=== PATIENT | male | born 1990 | race Caucasian/White ===

== ENCOUNTER 2020-11-14 09:24 | Outpatient (CLI) | payer OTHER, SELFPAY ==
--- NOTE | ~2020-11-14 | XR_ITS ---
EXAMINATION: XR chest 2V DATE: 11/14/2020 09:50 INDICATION: Smoking. Preop. TECHNIQUE: Frontal and lateral views of the chest were obtained. COMPARISON: Chest 2 views 02/17/2017, chest CT 02/17/2017 FINDINGS: The chest demonstrates clear lungs without pneumonia, pleural effusion, or pneumothorax. Th e heart size is normal. Surgical clips in the right upper quadrant are likely from cholecystectomy. IMPRESSION: 1. No acute cardiopulmonary disease. Reviewed, dictated and finalized at location A.
--- NOTE | 2020-11-14 09:54 | ECG_ITS ---
Measurements Intervals [place] Rate: 61 P: 50 ID: [id number] QRS: 50 QRSD: 102 T: 19 QT: 381 QTc: 385 Interpretive Statements SINUS RHYTHM WITH SINUS ARRHYTHMIA BASELINE WANDER- V4 NORMAL ECG Electronically Signed On 11-14-2020 10:24:04 CDT by Van Toro D.O.
== END 2020-11-14 09:25 | disposition home or self-care (01) ==
LOC: ANHIMG 09:34
PROVIDERS: PCP Family Medicine; Visit Provider Nurse Practitioner Family
DX: Z01.818 Encounter for other preprocedural examination (principal); F17.200 Nicotine dependence, unspecified, uncomplicated; I49.9 Cardiac arrhythmia, unspecified
CPT/HCPCS: 71046; 93005

== ENCOUNTER 2020-12-19 16:57 | Outpatient (CLI) | payer OTHER, SELFPAY ==
--- NOTE | ~2020-12-19 | US_ITS ---
EXAMINATION: US venous doppler [facility] EXAM DATE: 12/19/2020 17:25 INDICATION: Bilateral calf pain. TECHNIQUE: Multiple grayscale, color flow and Doppler images of the lower extremity deep venous syste ms bilaterally were obtained and reviewed. There is no prior study for comparison. FINDINGS: Right side: The right common femoral, femoral and profunda veins demonstrate normal color flow, respi ratory variation, augmentation and compressibility. Compressibility, color flow confirmed within the right popliteal, posterior tibial, peroneal, and greater saphenous veins. Left side: The left common femoral, femoral and profunda veins demonstrate normal color flow, respira tory variation, augmentation and compressibility. Compressibility, color flow confirmed within the l eft popliteal, posterior tibial, peroneal, and greater saphenous veins. IMPRESSION: 1. No lower extremity deep venous thrombosis bilaterally. Reviewed, dictated and finalized at location A.
[2020-12-19 18:00] LABS: D Dimer 0.42 ug/mL (<0.48)
[2020-12-19 18:02] LABS: Anion Gap 8 mmol/L (8-16); Blood Urea Nitrogen 22 mg/dL (9-20); Calcium 9.8 mg/dL (8.4-10.2); Carbon Dioxide 28 mmol/L (22-30); Chloride 103 mmol/L (98-107); Estimated Glomerular Filt Rate 59; Glucose 82 mg/dL (75-110); Magnesium 2.1 mg/dL (1.6-2.3); Sodium 139 mmol/L (137-145)
[2020-12-19 18:08] LABS: Basophils Percent Auto 0.5 % (0.2-1.2); Eosinophils Absolute Auto 0.1 K/mm3 (0-0.3); Eosinophils Percent Auto 1.6 % (0-4.4); Hematocrit 44.5 % (42.0-52.0); Hemoglobin 15.1 g/dL (14.0-18.0); Immature Granulocyte Absolute 0.02 K/mm3 (0.00-0.031); Immature Granulocyte Percent A 0.2 % (0-0.5); Lymphocytes Absolute Auto 2.66 K/mm3 (0.9-3.2); Lymphocytes Percent Auto 30.8 % (18.3-44.2); Mean Corpuscular HGB Conc 33.9 g/dl (32-36); Mean Corpuscular Hemoglobin 28.7 pg (26-34); Mean Corpuscular Volume 84.6 fl (80-100); Mean Platelet Volume 10.4 fl (7.4-10.4); Monocytes Absolute Auto 0.5 K/mm3 (0.1-0.6); Neutrophils Absolute Auto 5.3 K/mm3 (1.3-6.7); Neutrophils Percent Auto 60.9 % (45.5-73.1); Platelet Count Result 262 k/mm3 (150-375); Red Blood Count 5.26 M/mm3 (4.6-6.20); Red Cell Distribution Width 12.2 % (11.5-14.5); White Blood Count 8.7 K/mm3 (4.5-10.0)
== END 2020-12-19 16:58 | disposition home or self-care (01) ==
PROVIDERS: PCP Family Medicine; Visit Provider Nurse Practitioner Family
DX: M79.661 Pain in right lower leg (principal); Z82.49 Family history of ischemic heart disease and other diseases of the circulatory system; M79.662 Pain in left lower leg; M47.816 Spondylosis without myelopathy or radiculopathy, lumbar region
CPT/HCPCS: 36415; 80048; 82607; 83735; 85025; 85380; 93970

== ENCOUNTER → 2021-08-27 01:50 | Outpatient (CLI) | payer OTHER, SELFPAY ==
[2021-08-27 19:53] LABS: SARS-CoV-2 RNA PCR Negative
== END ==
PROVIDERS: PCP Family Medicine; Visit Provider Internal Medicine Gastroenterology
DX: Z01.812 Encounter for preprocedural laboratory examination (principal); Z20.822 Contact with and (suspected) exposure to COVID-19
CPT/HCPCS: C9803; U0003; U0005

== ENCOUNTER 2021-08-30 02:10 | Day surgery (SDC) | payer OTHER, SELFPAY ==
[2021-08-16 10:11] VITALS: BMI 34.9
--- NOTE | 2021-08-29 13:45 | WPDANESEPPF ---
Anes - Initial Pre Proc Eval Procedure: Operation Date: 08/30/21 09:00 Proposed Procedures p Colonoscopy - Andrew Friedman MD <Deyvi Brennan DO - Last Filed: 08/30/21 09:38> Date/Time: 08/29/21 13:45 <Deyvi Brennan DO - Last Filed: 08/30/21 09:38> Surgeon: Andrew Friedman MD <Deyvi Brennan, DO - Last Filed: 08/30/21 09:38> Pre Op Diagnosis: diarrhea, melena <Deyvi Brennan DO - Last Filed: 08/30/21 09:38> Patient Data Age: 31 Gender: M Height: 1.85 m Weight: 120 kg <Deyvi Brennan DO - Last Filed: 08/30/21 09:38> Allergies Allergy/AdvReac Type Severity Reaction Status Date / Time Penicillins Allergy Unknown Unknown Verified 08/30/21 08:11 <Deyvi Brennan DO - Last Filed: 08/30/21 09:38> Home Medications Medication Instructions Recorded Confirmed Type ibuprofen 800 mg tablet 800 mg PO Q6H PRN #60 tablet 03/22/21 08/30/21 Rx cholecalciferol (vitamin D3) 1,250 1,250 mcg PO WEEKLY 56 Days #8 cap 08/07/21 08/30/21 Rx mcg (50,000 unit) capsule omeprazole 20 mg PO PRN PRN 08/16/21 08/30/21 History <Deyvi Brennan DO - Last Filed: 08/30/21 09:38> Patient hx anesthesia problems: none <Yanick Marmolejo CRNA - Last Filed: 08/30/21 08:41> Family hx anesthesia problems: none <Yanick Marmolejo CRNA - Last Filed: 08/30/21 08:41> Results Review: All pre-operative results and documents have been reviewed as part of the pre-operative evaluation. <Deyvi Brennan DO - Last Filed: 08/30/21 09:38> [facility] Past Medical History Medical History: Medical History (Updated 08/30/21 @ 08:55 by Andrew Friedman MD) BMI 34.0-34.9,adult BMI 35.0-35.9,adult Gastroesophageal reflux disease Obstructive sleep apnea <Deyvi Brennan DO - Last Filed: 08/30/21 09:38> Surgical History Surgical History: Surgical History (Updated 08/30/21 @ 08:55 by Andrew Friedman MD) History of cholecystectomy Status post cervical disc replacement <Deyvi Brennan DO - Last Filed: 08/30/21 09:38> Family History Family History: Family History Father Diabetes mellitus Hypertension Family history of type 2 diabetes mellitus Family history of elevated blood lipids Sibling Family history of mental disorder Depression Mother Hypertension Grandparent Family history of Alzheimer's disease Family history of lung cancer Family history of malignant neoplasm of brain <Deyvi Brennan DO - Last Filed: 08/30/21 09:38> Social History Social History: Social History Years smoked: 10 Smoking status: Former smoker Tobacco type: cigarettes Second hand tobacco smoke exposure: No Smoking end date: 08/10/19 Alcohol intake: current Drinks per week: 2 Substance use: former Substance use type: marijuana Living arrangements: alone 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 Gender identity (if verbalized by the patient): Male <Deyvi Brennan DO - Last Filed: 08/30/21 09:38> Anes - Eval Final PreProcedure Day of Procedure 08/29/21 13:45 <Deyvi Brennan DO - Last Filed: 08/30/21 09:38> Patient weight: obese <Deyvi Brennan DO - Last Filed: 08/30/21 09:38> Heart: regular rate and rhythm <Deyvi Brennan DO - Last Filed: 08/30/21 09:38> Lungs: clear to auscultation and normal air movement <Deyvi Brennan DO - Last Filed: 08/30/21 09:38> Airway: Mallampati scale class II <Deyvi Brennan DO - Last Filed: 08/30/21 09:38> Neurological: alert and oriented <Deyvi Brennan DO - Last Filed: 08/30/21 09:38> Last oral intake: >/= 8 hours <Deyvi Brennan DO - Last Filed: 08/30/21 09:38> ASA classification:
[2021-08-30 08:05] VITALS: BP 149/99; PULSE 83; RESP 18; TEMP 36.1; O2SAT 98; BMI 35.5
[2021-08-30] MEDS: LACTATED RINGERS 1,000 ML 150 ML IV CONT (08:24)
--- NOTE | 2021-08-30 08:53 | WPDGICN ---
Assessment and Plan Assessment and plan (1) Blood in stool: Code(s): K92.1 - Melena Status: Acute Assessment and Plan: Patient describes bright red blood per rectum. Plan is for colonoscopy to assess more thoroughly. (2) Diarrhea: Code(s): R19.7 - Diarrhea, unspecified Status: Acute Assessment and Plan: Patient reports chronic loose stools and infrequent formed stools. Plan to assess more thoroughly with colonoscopy. Further recommendations will be given after endoscopy. (3) History of cholecystectomy: Code(s): Z90.49 - Acquired absence of other specified parts of digestive tract Status: Inactive GI Consult Note Consult date/time: 08/30/21 08:53 HPI: Jim Casey is a 31 year old male Presents for colonoscopy. Patient gives a history of diarrhea for many years he describes loose watery stools. In frequent formed stools. He states that after cholecystectomy in 2017 his diarrhea worsened. He occasionally notices some blood that is bright red with wiping. Recent stool Hemoccult was confirmed to be negative. Patient denies any specific abdominal pain. Family history noncontributory. He has never had stool cultures done. Review of Systems Review of Systems: All systems reviewed & are unremarkable except as noted in HPI and below PMFSH Past Medical History Medical History (Updated 08/30/21 @ 08:55 by Andrew Friedman MD) BMI 34.0-34.9,adult BMI 35.0-35.9,adult Gastroesophageal reflux disease Obstructive sleep apnea Surgical History Surgical History (Updated 08/30/21 @ 08:55 by Andrew Friedman MD) History of cholecystectomy Status post cervical disc replacement Family History Family History Father Diabetes mellitus Hypertension Family history of type 2 diabetes mellitus Family history of elevated blood lipids Sibling Family history of mental disorder Depression Mother Hypertension Grandparent Family history of Alzheimer's disease Family history of lung cancer Family history of malignant neoplasm of brain Social History Social History Years smoked: 10 Smoking status: Former smoker Tobacco type: cigarettes Second hand tobacco smoke exposure: No Smoking end date: 08/10/19 Alcohol intake: current Drinks per week: 2 Substance use: former Substance use type: marijuana Living arrangements: alone 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 Gender identity (if verbalized by the patient): Male Meds Home Medications and Allergies Home Medications Medication Instructions Recorded Confirmed Type ibuprofen 800 mg tablet 800 mg PO Q6H PRN #60 tablet 03/22/21 08/30/21 Rx cholecalciferol (vitamin D3) 1,250 1,250 mcg PO WEEKLY 56 Days #8 cap 08/07/21 08/30/21 Rx mcg (50,000 unit) capsule omeprazole 20 mg PO PRN PRN 08/16/21 08/30/21 History Allergies Allergy/AdvReac Type Severity Reaction Status Date / Time Penicillins Allergy Unknown Unknown Verified 08/30/21 08:11 Vital Signs Vital Signs - 24 hr 08/30/21 08:05 Temperature 97.0 F L Pulse Rate 83 Respiratory Rate 18 Blood Pressure 149/99 H Pulse Oximetry 98 Exam Narrative: Physical exam reveals patient be alert. Vital signs stable. HEENT exam is unremarkable. Patient is anicteric. Lungs are clear to auscultation and percussion. Heart is without murmur or extra sounds. Abdominal exam bowel sounds are present soft nontender with no organomegaly. Digital external rectal exam normal.
[2021-08-30 09:27] VITALS: BP 100/61; PULSE 74; RESP 15; O2SAT 97
[2021-08-30 09:37] VITALS: BP 102/73; PULSE 68; RESP 18; O2SAT 98
[2021-08-30 09:47] VITALS: BP 100/75; PULSE 72; RESP 18; O2SAT 98
== END 2021-08-30 09:59 | disposition home or self-care (01) ==
PROVIDERS: PCP Family Medicine; Visit Provider Internal Medicine Gastroenterology
PROC: 0DJD8ZZ Inspection of Lower Intestinal Tract, Via Natural or Artificial Opening Endoscopic (ICD-10-PCS; CPT 45378; principal; 2021-08-30 09:00)
DX: R19.7 Diarrhea, unspecified (principal); K62.5 Hemorrhage of anus and rectum; K64.8 Other hemorrhoids; Z90.49 Acquired absence of other specified parts of digestive tract; K21.9 Gastro-esophageal reflux disease without esophagitis; G47.33 Obstructive sleep apnea (adult) (pediatric); Z87.891 Personal history of nicotine dependence
CPT/HCPCS: 45380; 88305; C9803; J2001; J2704; J7120; U0003; U0005

== ENCOUNTER 2023-02-24 08:43 | Outpatient (CLI) | payer BC, SELFPAY ==
--- NOTE | 2023-03-18 14:43 | WPDHOMESLEEP ---
Sleep Study - Home Unattended Date of Study: 02/24/23 Ordering Provider: Ron Crain MD Interpreting Provider: Lyric Davidson MD Home Sleep Study Type: Watch PAT Height: 1.85 m Weight: 127.006 kg Body Mass Index: 36.9 Neck Circumference (inches): 17.25 Gazelle: 7 Reason for Sleep Study History of Obstructive sleep apnea, has not had successful treatment with an oral device Sleep History Jim Casey is a 32-year-old man with hypertension who constantly snores and stops breathing at night. He during ox himself awake, he is always tired during the day and never feels rested. His Mark created an oral appliance that never worked. This has been going on for years. He has a difficult time falling asleep and staying asleep. He frequently awakens from sleep feeling short of breath, he frequently awakens at night with heartburn, belching or coughing. He always snores loudly enough that others complain. He frequently has difficulty sleeping with a cold. He frequently wakes up gasping for breath at night. He constantly has breathing problems at night reported to him by others. He always sweats excessively at night. He frequently notices his heart pounding or beating irregularly at night. He frequently falls asleep during the day, frequently falls asleep involuntarily, never falls asleep while driving. He occasionally has daytime difficulties due to excessive sleepiness. 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 He does not feel paralyzed on waking or falling asleep. He does not have vivid dreamlike scenes on waking or falling asleep. He rarely feels afraid to go to sleep. He occasionally has nightmares. He frequently remembers his dreams. He constantly has racing thoughts. He occasionally feels sad or depressed. He frequently has anxiety. He occasionally notices parts of his body jerking. He frequently kicks at night and has crawling and aching feelings in his legs. He occasionally has leg pain at night. He never has morning jaw pain, never grind his teeth. He occasionally is bothered by pain during the day. He never is awakened by pain during the night. He occasionally wakes up feeling stiff in the morning, rarely wakes up with sore achy muscles. He frequently wakes up with pain in the neck and spine. Normal bedtime is between 8:00 p.m. and 11:00 p.m. taking a few hours fall asleep, typically waking anywhere between 4 and 5 times throughout the night to get a drink of water. It may take him 10 minutes or longer to return to sleep. He takes naps in the afternoon or evening. A short nap lasting 10 or 15 minute is not refreshing. He is usually drowsy for 2 hours after waking. He feels better in the afternoon compared to other times a day. Habits: Tobacco quit 4 years ago. Caffeine, he drinks soda, a variable amount daily. Alcohol, every other weekend. No recreational substances. [facility] Past Medical History Medical History BMI 34.0-34.9,adult BMI 35.0-35.9,adult BMI 37.0-37.9, adult BMI 38.0-38.9,adult Gastroesophageal reflux disease Obstructive sleep apnea Surgical History Surgical History History of cholecystectomy Status post cervical disc replacement Family History Family History Father Diabetes mellitus Hypertension Family history of type 2 diabetes mellitus Family history of elevated blood lipids Sibling Family history of mental disorder Depression Mother Hypertension Grandparent Family history of Alzheimer's disease Family history of lung cancer Family history of malignant neoplasm of brain Social History Social History Years smoked: 10 Smoking status: Former smoker Tobacco type: cigarettes Second hand tobacco smoke exposure: No Smoking end date: 08/10/18 Alcohol intake:
[2023-03-18 14:58] VITALS: BMI 36.9
== END 2023-02-25 11:16 | disposition home or self-care (01) ==
LOC: ANHCSM 08:44
PROVIDERS: PCP Family Medicine; Visit Provider Family Medicine
DX: G47.33 Obstructive sleep apnea (adult) (pediatric) (principal); I10 Essential (primary) hypertension; Z87.891 Personal history of nicotine dependence
CPT/HCPCS: 95800

== ENCOUNTER 2023-10-20 01:14 | Day surgery (SDC) | payer BC, SELFPAY ==
[2023-10-15 09:21] VITALS: BMI 35.6
--- NOTE | 2023-10-16 10:52 | SUR.PREOP ---
Patient called regarding upcoming procedure. Reviewed preop instructions, appointment times, and procedure prep.
[2023-10-20 13:26] VITALS: BP 138/97; PULSE 77; RESP 20; TEMP 36.3; O2SAT 100; BMI 35.6
[2023-10-20] MEDS: LACTATED RINGERS 1,000 ML 150 ML IV CONT (13:29)
--- NOTE | 2023-10-20 13:38 | WPDANESEPPF ---
Anes - Initial Pre Proc Eval Procedure: Operation Date: 10/20/23 14:00 Proposed Procedures p Esophagogastroduodenoscopy - Oj Trujillo MD Date/Time: 10/20/23 13:38 Surgeon: Oj Trujillo MD Pre Op Diagnosis: Dysphagia,GERD Patient Data Age: 33 Gender: M Height: 1.85 m Weight: 122.4 kg Last Vital Signs Temp 97.4 F L 10/20/23 13:26 Pulse 77 10/20/23 13:26 Resp 20 10/20/23 13:26 BP 138/97 H 10/20/23 13:26 Pulse Ox 100 10/20/23 13:26 O2 Del Method Room Air 10/20/23 13:26 Allergies Allergy/AdvReac Type Severity Reaction Status Date / Time Penicillins Allergy Severe Other Verified 10/20/23 13:22 Home Medications Medication Instructions Recorded Confirmed Type lisinopril 5 mg tablet 5 mg PO DAILY #90 tabs 06/14/23 10/20/23 Rx ibuprofen 800 mg tablet 800 mg PO TID PRN pain #60 tabs 08/20/23 10/20/23 Rx semaglutide (weight loss) 1.7 1.7 mg (0.75 mL) subcut WEEKLY #9 08/27/23 10/20/23 Rx mg/0.75 mL subcutaneous pen mL injector (Jahaira) omeprazole 40 mg capsule,delayed 40 mg PO DAILY Heartburn #30 caps 09/14/23 10/20/23 Rx release cetirizine 10 mg tablet (Zyrtec) 10 mg PO DAILY 10/15/23 10/20/23 History Patient hx anesthesia problems: none Family hx anesthesia problems: none Results Review: All pre-operative results and documents have been reviewed as part of the pre-operative evaluation. [facility] Past Medical History Medical History BMI 36.0-36.9,adult BMI 37.0-37.9, adult Gastroesophageal reflux disease Obstructive sleep apnea Surgical History Surgical History History of cholecystectomy Status post cervical disc replacement Family History Family History Father Diabetes mellitus Hypertension Family history of type 2 diabetes mellitus Family history of elevated blood lipids Sibling Family history of mental disorder Depression Mother Hypertension Grandparent Family history of Alzheimer's disease Family history of lung cancer Family history of malignant neoplasm of brain Social History Social History Smoking packs per day: 1 Smoking cigarettes per day: 20.0 Years smoked: 14 Smoking pack-years: 14.00 Smoking status: Former smoker Tobacco type: cigarettes Second hand tobacco smoke exposure: No Smoking end date: 08/10/18 Alcohol intake: current Drinks per week: 2 Substance use: never Substance use type: does not use Living arrangements: with family Occupation/Education: occupation 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 Informed Consent: The patient's anesthetic plan and its attendant risks and benefits were discussed with the patient/family/POA. Questions were solicited and answers provided to the satisfaction of the patient/family/POA.
--- NOTE | 2023-10-20 14:12 | WPDHPUPDATE1 ---
History and Physical Update Update Date/Time: 10/20/23 14:12 History and Physical has been reviewed, including an updated exam of the patient. There are NO changes in the patient's condition. Risks, benefits, and alternatives have been discussed and questions answered. Patient agrees to proceed with procedure.
[2023-10-20] MEDS: BENZOCAINE (*SP) 60 ML SPRAY CAN (HURRICAINE) 1 SPRAY MUCOUS MEM (14:15)
[2023-10-20 14:27] VITALS: BP 142/97; PULSE 89; RESP 19; O2SAT 99
[2023-10-20 14:37] VITALS: BP 145/99; PULSE 85; RESP 22; O2SAT 99
[2023-10-20 14:47] VITALS: BP 141/99; PULSE 76; RESP 22; O2SAT 99
== END 2023-10-20 14:50 | disposition home or self-care (01) ==
PROVIDERS: PCP Family Medicine; Visit Provider Internal Medicine Gastroenterology
PROC: 0DJ08ZZ Inspection of Upper Intestinal Tract, Via Natural or Artificial Opening Endoscopic (ICD-10-PCS; CPT 43235; principal; 2023-10-20 14:00)
DX: K21.00 Gastro-esophageal reflux disease with esophagitis, without bleeding (principal); K29.50 Unspecified chronic gastritis without bleeding; K22.2 Esophageal obstruction; G47.33 Obstructive sleep apnea (adult) (pediatric); E66.9 Obesity, unspecified; Z68.35 Body mass index [BMI] 35.0-35.9, adult; Z79.1 Long term (current) use of non-steroidal anti-inflammatories (NSAID); Z79.85 Long-term (current) use of injectable non-insulin antidiabetic drugs; Z98.1 Arthrodesis status; Z90.49 Acquired absence of other specified parts of digestive tract; Z87.891 Personal history of nicotine dependence; Z80.1 Family history of malignant neoplasm of trachea, bronchus and lung; Z80.8 Family history of malignant neoplasm of other organs or systems
CPT/HCPCS: 43249; 88305; C1726; J2704; J7120

== ENCOUNTER 2024-01-03 19:47 | Emergency (ER) | payer BC, SELFPAY ==
[2024-01-03 19:52] VITALS: BP 127/100; PULSE 101; RESP 16; TEMP 36.1; O2SAT 100
--- NOTE | 2024-01-03 19:53 | ED.EAR ---
HPI - Ear Problem General Chief complaint: Ear Stated complaint: Water In Right Ear Time Seen by Provider: 01/03/24 19:53 Source: patient, RN notes reviewed and old records reviewed Mode of arrival: ambulatory Limitations: no limitations History of Present Illness HPI Narrative: 33-year-old male to express in for complaint of right ear pain and fullness since yesterday. Patient reports he has attempted a variety of home remedies today to alleviate pain and pressure without relief. patient denies drainage from ear, dizziness, headache, recent illness, pertinent medical history. Patient is hypertensive in triage and states that he did not take his medication this morning. Patient in no acute distress. Related Data Home Medications Medication Instructions Recorded Confirmed cetirizine 10 mg tablet (Zyrtec) 10 mg PO DAILY 10/15/23 11/23/23 Allergies Allergy/AdvReac Type Severity Reaction Status Date / Time Penicillins Allergy Severe Other Verified 11/23/23 14:00 Review of Systems Review of Systems: All systems reviewed & are unremarkable except as noted in HPI and below Constitutional: Constitutional: Reports no additional constitutional complaints Eyes: Eyes: Reports no additional eye complaints ENT: Reports as per HPI and Reports otalgia ( Right) Cardiovascular: Cardiovascular: Reports no additional cardiovascular complaints, Denies chest pain and Denies dyspnea Respiratory: Respiratory: Reports no additional respiratory complaints, Denies cough and Denies dyspnea Musculoskeletal: Musculoskeletal: Reports no additional musculoskeletal complaints Neurologic: Reports system reviewed and no additional complaints, except as documented Psychiatric: Psychiatric: Reports no additional psychiatric complaints PMFSH Past Medical History Medical History BMI 35.0-35.9,adult BMI 36.0-36.9,adult BMI 37.0-37.9, adult Gastroesophageal reflux disease Obstructive sleep apnea Surgical History Surgical History History of cholecystectomy Status post cervical disc replacement Family History Family History Father Diabetes mellitus Hypertension Family history of type 2 diabetes mellitus Family history of elevated blood lipids Sibling Family history of mental disorder Depression Mother Hypertension Grandparent Family history of Alzheimer's disease Family history of lung cancer Family history of malignant neoplasm of brain Social History Social History Smoking packs per day: 1 Smoking cigarettes per day: 20.0 Years smoked: 14 Smoking pack-years: 14.00 Smoking status: Former smoker Tobacco type: cigarettes Second hand tobacco smoke exposure: No Smoking end date: 08/10/18 Alcohol intake: current Drinks per week: 2 Substance use: never Substance use type: does not use Living arrangements: with family Occupation/Education: occupation 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 There is no relevant family history pertinent to the patient complaint. Exam Const: General: cooperative, healthy appearing, comfortable, no acute distress, alert and well nourished Nutritional Appearance: well nourished Orientation/consciousness: patient oriented x3 Limitations: no limitations HENMT: Head: normal to inspection Ears: Abnormal EAC present excessive cerumen on the right, erythema on the right, edema on the right, EAC tenderness on the right and otic discharge occluded by discharge and TM abnormal wt
[2024-01-03 19:54] VITALS: BP 143/99
== END 2024-01-03 20:13 | disposition home or self-care (01) ==
PROVIDERS: Emergency Provider Nurse Practitioner Family
DX: H66.91 Otitis media, unspecified, right ear (principal); H61.21 Impacted cerumen, right ear; Z87.891 Personal history of nicotine dependence; K21.9 Gastro-esophageal reflux disease without esophagitis
CPT/HCPCS: 69210; 99213; G0463